=== PATIENT | male | born 1940 | race Caucasian/White ===

== ENCOUNTER 2019-08-28 14:12 | Observation (INO) | payer MEDICARE ==
[2019-08-28] MEDS ORDERED: Metoclopramide HCl 10 MG/2 ML VIAL ONE (15:15)
[2019-08-28] MEDS ORDERED: diphenhydrAMINE 50 MG/ML VIAL ONE (15:15)
--- NOTE | 2019-08-28 15:43 | CT ---
EXAM: CT brain without contrast HISTORY: Headache COMPARISON: None TECHNIQUE: Multiple contiguous axial images were obtained and a CT of the brain without contrast. FINDINGS: There are subtle scattered hypodensities in the subcortical and periventricular white matte r consistent with small vessel ischemic disease. There is no evidence of hydrocephalus, intracranial hemorrhage, or extra-axial fluid collection. The calvarium and overlying soft tissues are unremarkable. The visualized paranasal sinuses and masto id air cells are well aerated. IMPRESSION: No evidence of acute intracranial abnormality
[2019-08-28 15:59] LABS: #Eosinphils 0.1 thou/uL (0.0-0.7); #Lymphocytes 0.7 thou/uL (1.20-3.40); #Monocytes 1.1 thou/uL (0.11-0.59); #Neutrophils 5.5 thou/uL (1.40-6.50); %Basophils 0.5 % (0.0-1.0); %Eosinophils 1.1 % (0.0-10.0); %Lymphocytes 9.2 % (21.0-51.0); %Monocytes 14.6 % (0.0-10.0); %Neutrophils 74.7 % (42.0-75.0); Hemoglobin 12.5 g/dL (14.0-18.0); Mean Corpuscular HGB CONC 33.5 g/dL (32.0-36.0); Mean Corpuscular Hemoglobin 32.6 pg (27.0-31.0); Mean Corpuscular Volume 97.5 fL (78.0-98.0); Mean Platelet Volume 6.9 fL (7.4-10.4); Platelet Count 192 thou/uL (130-400); RBC Distribution Width 12.1 % (11.5-14.5); Red Blood Cell (RBC) Count 3.82 mill/uL (4.70-6.10); White Blood Cell (WBC) Count 7.4 thou/uL (4.8-10.8)
[2019-08-28 16:10] LABS: Bilirubin Negative (Negative); Blood, Urine Negative (Negative); Clarity Clear (Clear); Glucose, Urine (Dipstick) Normal (Negative); Leukocyte Negative Leu/uL (Negative); Nitrite Negative (Negative); Protein, Urine (Dipstick) 20 mg/dL (Neg-Trace); Urobilinogen Normal mg/dL (Less than 2)
[2019-08-28 16:21] LABS: ALT (SGPT) 20 U/L (8-55); AST (SGOT) 27 U/L (5-34); Albumin 3.9 g/dL (3.4-4.8); Alkaline Phosphatase 100 U/L (40-110); Anion Gap 17 mmol/L (10-20); BUN (Urea Nitrogen) 23 mg/dL (8.4-25.7); Bilirubin, Total 0.6 mg/dL (0.2-1.2); Calc. Creatinine Clearance 0 mL/min (70-130); Calcium 9.1 mg/dL (7.8-10.44); Carbon Dioxide 24 mmol/L (23-31); Chloride 105 mmol/L (98-107); Estimated GFR-MDRD 67; Glucose 100 mg/dL (83-110); Potassium 3.7 mmol/L (3.5-5.1); Protein, Total 6.9 g/dL (5.8-8.1); Sodium 142 mmol/L (136-145)
[2019-08-28] MEDS ORDERED: Lidocaine 1% (PF) 30 ML VIAL ONE (16:21)
[2019-08-28] MEDS ORDERED: Ketorolac Tromethamine 30 MG/ML VIAL ONE (16:22)
[2019-08-28] MEDS ORDERED: Magnesium 2 GM/50 ML BAG (IN WATER) ONE (17:51)
[2019-08-28] MEDS ORDERED: Acetaminophen 500 MG TAB ONE ×2 (18:06→18:10)
[2019-08-28] MEDS ORDERED: Dexamethasone 10 MG/ML VIAL ONE ×2 (18:06→18:10)
[2019-08-28 18:08] LABS: CSF Source CSF; Clarity Clear (Clear); Tube # 4
[2019-08-28 18:11] LABS: RBC Count - Manual 1 /cumm (None Seen); WBC/NonHematics Count - Manual 0 /cumm (0-5)
[2019-08-28 18:12] LABS: Color Of CSF Supernatant COLORLESS (Colorless); Tube # 2; Unspun CSF Color COLORLESS (Colorless)
[2019-08-28 18:16] LABS: CSF Source CSF; Clarity Clear (Clear); RBC Count - Manual 79 /cumm (None Seen); Tube # 1; WBC/NonHematics Count - Manual 2 /cumm (0-5)
[2019-08-28 18:23] LABS: CSF, Glucose 61 mg/dl (40-70); CSF, Protein 56 mg/dL (15-40)
[2019-08-28] MEDS ORDERED: Senokot S 8.6-50 MG TAB PO PRN (19:47)
[2019-08-28] MEDS ORDERED: Acetaminophen 325 MG TAB PO PRN (19:47)
[2019-08-28] MEDS ORDERED: HYDROcodone/Acetaminophen 5/325 mg Tablet PO PRN ×2 (19:47)
[2019-08-28] MEDS ORDERED: predniSONE 20 MG TAB PO SCH (20:30)
--- NOTE | 2019-08-28 21:00 | PDOC.HHP ---
Hospitalist HPI - History of Present Illness Intractable COATES x2 weeks History of Present Illness: 79M presents to the ED for evaluation of an intractable headache x2 weeks. Reports it is non-focal, worse when he wakes up from sleeping Reports it is primarily at the back of his head, reports his neck is also tight Denies fever, chills, other symptoms Denies he has been able to get 4-5 hours of sleep at night then wakes up with a pounding coates. reports he doesn't often complain but this headache has her concerned Has PMH pertinent for RA, HTN, Hyperlipidemia, GERD, tried to decrease his daily prednisone dose 2 weeks ago from 4mg to 3mg which lasted 2-3 days. He reports his joints started to hurt and he went back to his regular 4mg daily dose. Reports he had a headache at that point. Reports tylenol takes the edge off but does not take the COATES away. ED Course: ESR= 69, LP with RBC and elevated protein COATES protocol meds did not help much. Chemistry unremarkable CBC within NL Will be admitted for possible MRI/further management Hospitalist ROS - Review of Systems Constitutional: denies: fever, chills, sweats, weakness, malaise, other Eyes: denies: pain, vision change, conjunctivae inflammation, eyelid inflammation, redness, other ENT: reports: other (intermittent jaw pain) Respiratory: denies: cough, dry, shortness of breath, hemoptysis, SOB with excertion, pleuritic pain, sputum, wheezing, other Cardiovascular: denies: chest pain, palpitations, orthopnea, paroxysmal noc. 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) Gastrointestinal: reports: GERD Heme/Onc: reports: no pertinent history Psych: reports: no pertinent history Musculoskeletal: reports: Chronic low back pain Rheumatologic: reports: Rheumatoid arthritis Renal/: reports: no pertinent history Endocrine: reports: no pertinent history Dermatology: reports: no pertinent history - Past Surgical History Past Surgical History: reports: Other (lumbar spine surgery) - Family History Family History: reports: no pertinent history - Social History Smoking Status: Never smoker Alcohol: reports: None Drugs: reports: none Living Situation: With Family - Exam General Appearance: awake alert Eye: PERRL, anicteric sclera ENT: normocephalic atraumatic, moist mucosa Neck: supple, no lymphadenopathy Heart: RRR, no murmur, normal peripheral pulses Respiratory: CTAB, no wheezes Gastrointestinal: soft, non-tender Extremities: no cyanosis, no clubbing, no edema Skin: normal turgor Neurological: cranial nerve grossly intact, no focal deficits Musculoskeletal: normal tone, normal strength Psychiatric: normal affect, A&O x 3 Hospitalist Results - Labs Result Diagrams: 08/28/19 15:53 08/28/19 15:53 Lab results: WBC 7.4 thou/uL (4.8-10.8) 08/28/19 15:53 Hgb 12.5 g/dL (14.0-18.0) L 08/28/19 15:53 Hct 37.3 % (42.0-52.0) L 08/28/19 15:53 MCV 97.5 fL (78.0-98.0) 08/28/19 15:53 Plt Count 192 thou/uL (130-400) 08/28/19 15:53 Neutrophils % 74.7 % (42.0-75.0) 08/28/19 15:53 ESR Westergren 69 mm/hr (Less than 20) 08/28/19 15:33 Sodium 142 mmol/L (136-145) 08/28/19 15:53 Potassium 3.7 mmol/L (3.5-5.1) 08/28/19 15:53 Chloride 105 mmol/L (98-107) 08/28/19 15:53 Carbon Dioxide 24 mmol/L (23-31) 08/28/19 15:53 BUN 23 mg/dL (8.4-25.7) 08/28/19 15:53 Creatinine 1.07 mg/dL (0.7-1.3) 08/28/19 15:53 Glucose 100 mg/dL (83-110) 08/28/19 15:53 Calcium 9.1 mg/dL (7.8-10.44) 08/28/19 15:53 Total Bilirubin 0.6 mg/dL (0.2-1.2) 08/28/19 15:53 AST 27 U/L (5-34) 08/28/19 15:53 ALT 20 U/L (8-55) 08/28/19 15:53 Alkaline Phosphatase 100 U/L (40-110) 08/28/19 15:53 Serum Total Protein 6.9 g/dL (5.8-8.1) 08/28/19 15:53 Albumin 3.9 g/dL (3.4-4.8) 08/28/19 15:53 Urine Ketones Negative mg/dL (Negative) 08/28/19 15:57 Urine Blood Negative (Negative) 08/28/19 15:57 Urine Nitrite Negative (Negative) 08/28/19 15:57 Ur Leukocyte Esterase Negative Francesco/uL (Negative) 08/28/19 15:57 Hospitalist H&P A/P - Problem (1) Headache Code(s): R51 - HEADACHE Status: Acute (2) Hypertension Code(s): I10 - ESSENTIAL (PRIMARY) HYPERTENSION Status: Chronic (3) Hyperlipidemia Code(s): E78.5 - HYPERLIPIDEMIA, UNSPECIFIED Status: Chronic (4) GERD (gastroesophageal reflux disease) Code(s): K21.9 - GASTRO-ESOPHAGEAL REFLUX DISEASE WITHOUT ESOPHAGITIS Status: Chronic (5) Rheumatoid arthritis Code(s): M06.9 - RHEUMATOID ARTHRITIS, UNSPECIFIED Status: Chronic - Plan Plan: Giant Cell Arteritis is a consideration with intractable COATES, non-focal with radiation to neck and intermittent jaw pain, and elevated ESR. We will treat with daily prednisone 40mg to see if there is improvement of symptoms. Brain MRI and neurology consult. 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 Tylenol as needed for COATES. Will add more as needed. Home meds will be restarted once verified DVT and GI prevention started Case discussed with Dr. Vazquez and he also saw patient, plan discussed as a team. Patient is a full code.
[2019-08-28] MEDS: Famotidine 20 MG TAB PO SCH (22:09)
[2019-08-28 22:23] VITALS: BMI 25.0
[2019-08-29 06:15] LABS: #Lymphocytes 0.4 thou/uL (1.20-3.40); #Monocytes 0.2 thou/uL (0.11-0.59); #Neutrophils 3.4 thou/uL (1.40-6.50); %Eosinophils 0.4 % (0.0-10.0); %Lymphocytes 10.2 % (21.0-51.0); %Monocytes 4.3 % (0.0-10.0); %Neutrophils 85.1 % (42.0-75.0); Hemoglobin 12.4 g/dL (14.0-18.0); Mean Corpuscular HGB CONC 33.1 g/dL (32.0-36.0); Mean Corpuscular Hemoglobin 32.3 pg (27.0-31.0); Mean Corpuscular Volume 97.6 fL (78.0-98.0); Platelet Count 206 thou/uL (130-400); RBC Distribution Width 11.9 % (11.5-14.5); Red Blood Cell (RBC) Count 3.84 mill/uL (4.70-6.10)
[2019-08-29 06:32] LABS: Anion Gap 11 mmol/L (10-20); BUN (Urea Nitrogen) 27 mg/dL (8.4-25.7); Calc. Creatinine Clearance 65 mL/min (70-130); Calcium 9.1 mg/dL (7.8-10.44); Carbon Dioxide 27 mmol/L (23-31); Chloride 107 mmol/L (98-107); Estimated GFR-MDRD 72; Glucose 147 mg/dL (83-110); Potassium 4.9 mmol/L (3.5-5.1); Sodium 140 mmol/L (136-145)
[2019-08-29] MEDS ORDERED: predniSONE 20 MG TAB PO SCH (08:00)
[2019-08-29] MEDS ORDERED: Enoxaparin Sodium 40 MG/0.4 ML SYRINGE SC SCH (09:00)
[2019-08-29] MEDS ORDERED: FLU VACC TS2019-20(65YR UP)/PF 180 MCG/0.5 ML SYRINGE IM ONE (09:00)
[2019-08-29] MEDS: Famotidine 20 MG TAB PO SCH (09:16)
[2019-08-29 11:45] VITALS: BP 121/69; TEMP 98
--- NOTE | 2019-08-29 21:27 | PDISCHARGE ---
Discharge - Disposition Disposition: HOME - Ambulatory Orders Prescriptions: predniSONE 40 mg PO QAM-WM 7 Days #14 tab - Patient Instructions Pre-Printed Education: Headache and Arthritis, Temporal Arteritis, Prednisone tablets - Referrals and PCP Follow-Up Referrals and PCP Follow-Up: [facility],OUT OF [Primary Care Provider] - (follow up with recordist chief as directed) - Activity Instructions Activity:: Activity as Tolerated - Nourishment Instructions Nourishment:: No Restrictions - Therapy Instructions Therapies:: Not Applicable Course - Course Orders, Labs, Meds: Patient admitted for intractable headache for approximately 2 weeks. Has history of RA. 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 ESR elevated at 70 and elevated CRP at 13. Highly suggestive of possible RA flare or giant cell arteritis given headache and mention of jaw pain at the onset. I personally called his recordist chief clinic in [facility] and disucssed with the nurse practictioner about these findings and improvement of headache after only 2 doses of prednisone. They will continue further workup and management. I have sent him with a week supply of prednisone which will likely need to be tapered in their clinic. Appointment scheduled for 2pm tomorrow. His headache had comppleted resolved at the time of discharge. (1) Headache Code(s): R51 - HEADACHE Status: Acute (2) Hypertension Code(s): I10 - ESSENTIAL (PRIMARY) HYPERTENSION Status: Chronic (3) Hyperlipidemia Code(s): E78.5 - HYPERLIPIDEMIA, UNSPECIFIED Status: Chronic (4) GERD (gastroesophageal reflux disease) Code(s): K21.9 - GASTRO-ESOPHAGEAL REFLUX DISEASE WITHOUT ESOPHAGITIS Status: Chronic (5) Rheumatoid arthritis
== END 2019-08-29 14:25 | disposition home or self-care (01) ==
LOC: ERS 14:12 → ERHOLD 19:28 → 3SE 21:20
PROVIDERS: ADMIT Internal Medicine; ATTEND Internal Medicine
DX: R51 Headache (principal); M06.9 Rheumatoid arthritis, unspecified; I10 Essential (primary) hypertension; E78.5 Hyperlipidemia, unspecified; K21.9 Gastro-esophageal reflux disease without esophagitis; G89.29 Other chronic pain; M54.5 Low back pain; Z79.52 Long term (current) use of systemic steroids; Z79.899 Other long term (current) drug therapy
CPT/HCPCS: 36415; 62270; 70450; 80048; 80053; 81003; 82945; 84157; 85025; 85652; 86140; 86612; 86635; 86698; 87070; 87205; 89051; 96365; 96367; 96372; 96375; G0378; J1100; J1200; J1650; J1885; J2001; J2765; J3475; J7512